=== PATIENT | male | born 1970 | race Caucasian/White ===

== ENCOUNTER 2019-04-25 19:15 | Emergency (ER) | payer BC, OTHER ==
[2019-04-25 19:40] VITALS: BP 146/76; PULSE 80; BMI 46.5
[2019-04-25 20:05] VITALS: TEMP 98.9
--- NOTE | 2019-04-25 21:39 | PDOC ---
Documentation entered by Nichole Canales SCRIBE, acting as scribe for Chuy Mcguire MD. Chuy Mcguire MD: This documentation has been prepared by the Ally self Sammi, SCRIBE, under my direction and personally reviewed by me in its entirety. I confirm that the documentation accurately reflects all work, treatment, procedures, and medical decision making performed by me. History of Present Illness - General Chief Complaint: Respiratory Stated Complaint: FEVER - History of Present Illness Initial Comments: 04/25/19 20:09 The patient is a 48 year old male who presents to the ED for evaluation of intermittent fevers (Tmax 103) since Friday with associated bilateral joint pain to hands, knees, and elbows. The patient states the fever episodes occur at night for about 20 minutes and experiences palpitations. He reports taking tylenol irregularly since his symptoms began. Denies shortness of breath, headache and dizziness. Denies fever, chills, nausea , vomiting, diarrhea and constipation. Denies dysuria, frequency, urgency and hematuria. Medical history: Childhood rheumatic fever Past History - Past Medical History Allergies/Adverse Reactions: Allergies Allergy/AdvReac Type Severity Reaction Status Date / Time ciprofloxacin HCl Allergy Verified 04/25/19 19:29 [From Cipro] Penicillins Allergy Verified 04/25/19 19:29 telithromycin [From KETEK] Allergy Verified 04/25/19 19:29 Home Medications: Ambulatory Orders Metoprolol Succinate [Toprol XL -] 100 mg PO DAILY 11/06/12 Aspirin [Baby Aspirin] 81 mg PO DAILY 09/20/13 Sertraline HCl [Zoloft] 100 mg PO DAILY #30 tablet 09/20/13 Amlodipine Besylate [Norvasc -] 5 mg PO DAILY 04/25/19 Candesartan Cilexetil [Atacand] 32 mg PO DAILY 04/25/19 HTN: Yes - Immunization History Td Vaccination: Yes Immunization Up to Date: No - Psycho Social/Smoking Cessation Hx Smoking Status: No Smoking History: Never smoked Number of Cigarettes Smoked Daily: 0 Review of Systems - Review of Systems Comments:: 04/25/19 20:09 GENERAL/CONSTITUTIONAL: +fever. No chills. No weakness. HEAD, EYES, EARS, NOSE AND THROAT: No change in vision. No ear pain or discharge. No sore throat. CARDIOVASCULAR: +palpitations. No shortness of breath. RESPIRATORY: No cough, wheezing, or hemoptysis. GASTROINTESTINAL: No nausea, vomiting, diarrhea or constipation. GENITOURINARY: No dysuria, frequency, or change in urination. MUSCULOSKELETAL: +joint pain to extremities. No neck or back pain. SKIN: No rash NEUROLOGIC: No headache, vertigo, loss of consciousness, or change in strength/ sensation. *Physical Exam - Vital Signs Last Vital Signs Temp Pulse Resp BP Pulse Ox 98.9 F 80 18 146/76 96 04/25/19 20:04 04/25/19 19:25 04/25/19 19:25 04/25/19 19:25 04/25/19 19:25 - Physical Exam 04/25/19 20:10 GENERAL: Awake, alert, and fully oriented, in no acute distress EYES: PERRLA, EOMI, sclera anicteric, conjunctiva clear ENT: Auricles normal inspection, hearing grossly normal, nares patent, oropharynx clear without exudates. Moist mucosa NECK: Normal ROM, supple, no lymphadenopathy, JVD, or masses LUNGS: Breath sounds equal, clear to auscultation bilaterally. No wheezes, and no crackles HEART: Regular rate and rhythm, normal S1 and S2, no murmurs, rubs or gallops ABDOMEN: Soft, nontender, normoactive bowel sounds. No guarding, no rebound. No masses EXTREMITIES: Normal range of motion, no edema. No clubbing or cyanosis. No cords, erythema, or tenderness NEUROLOGICAL: Cranial nerves II through XII grossly intact. Normal speech, normal gait SKIN: Warm, Dry, normal turgor, no rashes or lesions noted. Medical Decision Making - Medical Decision Making 04/26/19 06:37 febrile illness without source on PE shared decision making: no lozada yet. Will return to ED for persistence of symptoms > 2 days antipyretic fluids Discharge - Discharge Information Problems reviewed: Yes Clinical Impression/Diagnosis: Febrile illness Condition: Good Disposition: HOME - Follow up/Referral Referrals: Jamie Lopez MD [Primary Care Provider] - - Patient Discharge Instructions Patient Printed Discharge Instructions: DI for Common Cold - Post Discharge Activity
== END 2019-04-25 20:19 | disposition home or self-care (01) ==
LOC: FER 19:15
DX: R50.9 Fever, unspecified (principal)
CPT/HCPCS: 99281-25

== ENCOUNTER 2020-05-07 13:09 | Emergency (ER) | payer BC, OTHER ==
[2020-05-07 13:31] VITALS: BP 146/70; PULSE 66; TEMP 99.3; BMI 46.0
== END 2020-05-07 13:54 | disposition home or self-care (01) ==
LOC: FER 13:09
DX: H60.502 Unspecified acute noninfective otitis externa, left ear (principal)
CPT/HCPCS: 99283-25